=== PATIENT | male | born 1980 | race Hispanic/Latino ===

== ENCOUNTER 2021-05-29 14:43 | Day surgery (SDC) | payer BC ==
[2021-05-26 09:14] VITALS: BP 148/75
[2021-05-29] VITALS (11 sets, daily range): BP systolic 131–159; BP diastolic 68–91
[~2021-05-29] VITALS: Ht 175.3 cm; Wt 126.1 kg
[2021-05-29] MEDS ORDERED: LACTATED RINGERS 1000ML 1,000 ML IV ONE (14:48)
[2021-05-29] MEDS: CEFTRIAXONE 1G VIAL IVP SCH ×2 (15:14→18:50)
[2021-05-29] MEDS ORDERED: LISI10TA24 PO (15:17)
[2021-05-29] MEDS ORDERED: TRAM50TA4 PO (15:17)
[2021-05-29] MEDS ORDERED: IBUP-2077 PO (15:17)
[2021-05-29] MEDS ORDERED: IOHEXOL-350 50ML VIAL IV ONE (16:23)
[2021-05-29] MEDS ORDERED: SUCCINYLCHOLINE 200MG/10ML SYR ONE (18:38)
[2021-05-29] MEDS ORDERED: ROCURONIUM 10MG/1ML SYR 10 MG/ML ML ONE (18:38)
[2021-05-29] MEDS ORDERED: MIDAZOLAM HCL 1 MG/ML 2ML VIAL ONE (18:38)
[2021-05-29] MEDS ORDERED: LIDOCAINE PF 100MG/5ML (2%) SYRINGE 5ML ONE (18:38)
[2021-05-29] MEDS ORDERED: PROPOFOL 10 MG/ML 20ML VIAL IV ONE (18:38)
[2021-05-29] MEDS ORDERED: FENTANYL CITRATE PF 50 MCG/1 ML 2ML VIAL ONE ×2 (18:39→19:08)
[2021-05-29] MEDS ORDERED: EPHEDRINE SULFATE 50 MG/ML AMPULE ONE (19:03)
[2021-05-29] MEDS ORDERED: ONDANSETRON 4MG INJ ONE (19:39)
[2021-05-29] MEDS ORDERED: PHENAZOPYRIDINE HCL 200 MG TABLET ONE (20:01)
== END 2021-05-29 21:05 | disposition home or self-care (01) ==
LOC: DAH 14:43
PROVIDERS: ATTEND Urology
DX: N13.2 Hydronephrosis with renal and ureteral calculous obstruction (principal); I10 Essential (primary) hypertension; E66.01 Morbid (severe) obesity due to excess calories; Z68.41 Body mass index [BMI] 40.0-44.9, adult; Z79.01 Long term (current) use of anticoagulants; Z79.899 Other long term (current) drug therapy; Z20.822 Contact with and (suspected) exposure to COVID-19
CPT/HCPCS: 36415; 52356; 74420; 82360; 87635; A4215; A4221; A4222; A4223; A4344; A4358; A4600; A4663; A5113; A6260; C1726; C1758; C1769; C2617; C9803; J0330; J0696; J2001; J2250; J2405; J2704; J3010 ×2; J3490; J7120; Q9967